=== PATIENT | female | born 1990 | race Hispanic/Latino ===

== ENCOUNTER 2022-04-08 19:18 | Emergency (ER) | payer MEDICAID, OTHER ==
[~2022-04-08] VITALS: Ht 154.9 cm; Wt 88.5 kg
[2022-04-08 20:29] VITALS: BP 129/69
[2022-04-08] MEDS ORDERED: IBUPROFEN 600 MG TABLET PO ONE (21:30)
[2022-04-08] MEDS ORDERED: TETANUS/DIPHTHERIA TOXOID [ADULT] 0.5 ML VIAL IM ONE (21:30)
[2022-04-08] MEDS ORDERED: AMOX1TAB16 PO (22:56)
== END 2022-04-08 23:14 | disposition home or self-care (01) ==
LOC: EDH 19:18
DX: S81.831A Puncture wound without foreign body, right lower leg, initial encounter (principal); E78.00 Pure hypercholesterolemia, unspecified; Z79.1 Long term (current) use of non-steroidal anti-inflammatories (NSAID); W54.0XXA Bitten by dog, initial encounter; Y93.89 Activity, other specified; Y92.89 Other specified places as the place of occurrence of the external cause; Y99.8 Other external cause status
CPT/HCPCS: 73590; 90471; 90714